=== PATIENT | female | born 1955 | race Caucasian/White ===

== ENCOUNTER 2017-12-17 01:55 | Inpatient (IN) ==
[2017-12-17] MEDS ORDERED: Morphine Sulfate Inj 8 MG/ML Vial IV.PUSH ONE (03:09)
--- NOTE | 2017-12-17 03:38 | ED ---
HPI General Chief complaint: Medical Clearance Stated complaint: Medical Transfer Time Seen by Provider: 12/17/17 02:15 Source: patient and old records reviewed Mode of arrival: EMS Limitations: no limitations History of Present Illness HPI narrative: 62-year-old female came to the emergency room brought by EMS as a transfer from [facility]. Patient went to the emergency room for some confusion. She has history of lung cancer with metastases. A head CT was done in the emergency room which showed a newly diagnosed hyperdense mass in the parietal region with vasogenic edema. They spoke with our neurosurgeon Dr. Scales who accepted the patient. Patient is awake and alert and answering questions. She says that she is in significant pain in her both lower and upper extremities. She understands the reason she is been transferred here. Vital signs are stable. Pain is worse upon movement. She received morphine prior to coming to this emergency room. Related Data Previous Rx's Medication Instructions Recorded dexamethasone 4 mg PO Q6H 7 Days #28 tab 12/18/17 Allergies Allergy/AdvReac Type Severity Reaction Status Date / Time latex Allergy Severe Anaphylaxis Verified 12/17/17 02:12 Review of Systems ROS: all other systems reviewed are negative [facility] Medical History Medical History Lung cancer (Acute) Social History Social History Substance History: No History of Abuse Second Hand Smoke Exposure: No Smoking Status: Former smoker Tobacco Type: Cigarettes How Often Do You Have a Drink Containing Alcohol: Never Immunization History Tetanus Immunization: Unsure Exam Narrative Exam Narrative: GENERAL: Awake, alert, moderate distress SKIN: Focused skin assessment warm/dry. HEAD: Atraumatic. Normocephalic. EYES: Pupils equal and round. No scleral icterus. No injection or drainage. ENT: No nasal bleeding or discharge. Mucous membranes pink and moist. NECK: Trachea midline. No JVD. CARDIOVASCULAR: Regular rate and rhythm. No murmur appreciated. RESPIRATORY: No accessory muscle use. Clear to auscultation. Breath sounds equal bilaterally. GASTROINTESTINAL: Abdomen soft, non-tender, nondistended. Hepatic and splenic margins not palpable. MUSCULOSKELETAL: No obvious deformities. No clubbing. No cyanosis. No edema. NEUROLOGICAL: Awake and alert. No obvious cranial nerve deficits. Motor grossly within normal limits. Normal speech. PSYCHIATRIC: Appropriate mood and affect; insight and judgment normal. Course Initial Documented Vital Signs Temperature 98.4 F 12/17/17 02:12 Pulse Rate 93 H 12/17/17 02:12 Respiratory Rate 19 12/17/17 02:12 Blood Pressure 158/70 H 12/17/17 02:12 Pulse Oximetry 94 L 12/17/17 02:12 Last Documented Vital Signs Temperature 97.6 F 12/18/17 12:00 Pulse Rate 72 12/18/17 16:00 Respiratory Rate 16 12/18/17 16:00 Blood Pressure 183/83 H 12/18/17 12:00 Pulse Oximetry 93 L 12/18/17 16:00 Medical Decision Making MDM Narrative Medical decision making narrative: 3:36 AM case was discussed with Dr. Scales after I spoke with the patient. Patient will be admitted to the MedSur floor under the hospitalist care. I have ordered morphine for her pain. She will get a dose of 4 mg of Decadron as per Dr. Scales. I discussed the case with Dr. Thomas from [facility] who has accepted the patient. Medical Screen Exam Complete: Yes Emergency Medical Condition: Yes Lab Data Result diagrams: 12/17/17 04:12 12/17/17 04:12 Lab Results 12/17/17 12/17/17 Range/Units 04:12 04:12 WBC 13.7 H (4.0-11.0) th/mm3 RBC 4.05 (4.00-5.30) mil/mm3 Hgb 11.8 (11.6-15.3) gm/dL Hct 34.7 L (35.0-46.0) % MCV 85.7 (80.0-100.0) fL MCH 29.2 (27.0-34.0) pg MCHC 34.0 (32.0-36.0) % RDW 16.1 (11.6-17.2) % Plt Count 528 H (150-450) th/mm3 MPV 6.9 L (7.0-11.0) fL Neut % (Auto) 80.1 H (16.0-70.0) % Lymph % (Auto) 9.7 (9.0-44.0) % [place] % (Auto) 8.7 H (0.0-8.0) % Eos % (Auto) 0.8 (0.0-4.0) % Baso % (Auto) 0.7 (0.0-2.0) % Neut # (Auto) 11.0 H (1.8-7.7) th/mm3 Lymph # (Auto) 1.3 (1.0-4.8) th/mm3 [place] # (Auto) 1.2 H (0.0-0.9) th/mm3 Eos # (Auto) 0.1 (0.0-0.4) th/mm3 Baso # (Auto) 0.1 (0.0-0.2) th/mm3 WBC Differential . Differential Comment Auto diff final Sodium 132 L (136-145) meq/L Potassium 4.2 (3.5-5.1) meq/L Chloride 95 L (98-107) meq/L Carbon Dioxide 25.0 (21.0-32.0) meq/L Anion Gap 12 (5-15) meq/L BUN 18 (7-18) mg/dL Creatinine 0.74 (0.50-1.00) mg/dL Estimated GFR 79 L (>89) mL/min Random Glucose 100 (74-106) mg/dL Calcium 9.3 (8.5-10.1) mg/dL Total Bilirubin 0.5 (0.2-1.0) mg/dL AST 13 L (15-37) U/L ALT 14 (10-53) U/L Alkaline Phosphatase 93 (45-117) U/L Total Protein 7.1 (6.4-8.2) g/dL Albumin 3.3 L (3.4-5.0) g/dL Imaging Data Radiologist's impression: Head MRI 12/17/17 00:00 CONCLUSION: 1. Rim-enhancing mass in the right frontal lobe with moderate surrounding vasogenic edema. 2. No definite additional lesions seen. Abdomen X-Ray 12/18/17 00:00 CONCLUSION: Mild constipation and diffuse ileus. Left lung mass measuring 6.[address] recommended if this has not been previously performed. Discharge Plan Discharge Disposition Patient Disposition: 30 Still Patient Discharge Condition Condition: Fair Discharge Order Discharge Orders: Discharge Order (Routine); Ordered 12/18/17 Ordered By: Tiffanie Stuart Discharge Details Anticipated Discharge Date: 12/18/17 Physicians Team ED Provider: Jonna Sumner Primary Care Provider: Primary Care Yadi Bernardo Attending Provider: Woody Ruiz Other Providers: Cameron Scales Status ED Status: Left Department Discharge Information Discharge Date/Time: 12/17/17 05:30
[2017-12-17 04:22] LABS: Baso # (Auto) 0.1 th/mm3 (0.0-0.2); Baso % (Auto) 0.7 % (0.0-2.0); Eos # (Auto) 0.1 th/mm3 (0.0-0.4); Eos % (Auto) 0.8 % (0.0-4.0); Hematocrit 34.7 % (35.0-46.0); Hemoglobin 11.8 gm/dL (11.6-15.3); Lymph # (Auto) 1.3 th/mm3 (1.0-4.8); Lymph % (Auto) 9.7 % (9.0-44.0); Mean Corpuscular Hemoglobin 29.2 pg (27.0-34.0); Mean Corpuscular Volume 85.7 fL (80.0-100.0); Mean Platelet Volume 6.9 fL (7.0-11.0); Mono # (Auto) 1.2 th/mm3 (0.0-0.9); Mono % (Auto) 8.7 % (0.0-8.0); Neut % (Auto) 80.1 % (16.0-70.0); Platelet Count 528 th/mm3 (150-450); Red Blood Count 4.05 mil/mm3 (4.00-5.30); Red Cell Distribution Width 16.1 % (11.6-17.2); White Blood Count 13.7 th/mm3 (4.0-11.0)
[2017-12-17 04:54] LABS: Albumin 3.3 g/dL (3.4-5.0); Anion Gap 12 meq/L (5-15); Aspartate Aminotransferase 13 U/L (15-37); Blood Urea Nitrogen 18 mg/dL (7-18); Calcium 9.3 mg/dL (8.5-10.1); Chloride 95 meq/L (98-107); Glomerular Filtration Rate 79 mL/min (>89); Glucose,Random 100 mg/dL (74-106); Potassium 4.2 meq/L (3.5-5.1); Sodium 132 meq/L (136-145)
[2017-12-17 04:55] LABS: Alanine Aminotransferase 14 U/L (10-53)
[2017-12-17 04:57] LABS: Alkaline Phosphatase 93 U/L (45-117); Total Protein 7.1 g/dL (6.4-8.2)
--- NOTE | 2017-12-17 09:12 | P.CONNS ---
History of Present Illness Primary Care Provider: No Primary Care Physician Chief Complaint: confusion, left facial droop History of Present Illness: 62yoF transferred from OSH >1 hr away with recently diagnosed lung masses and now brain mets (confusion and left sided weakness). Brain mass demonstrated on outside head CT with edema, no imaging loaded in our system. Patient is present with her son. She has had pain all over and been seeing interventional pain management (in [place]) where imaging revealed in bits and pieces masses. She saw an outside oncologist 2 weeks ago. Would like to consolidate her care here and demanded transfer here despite having a nearby hospital. [facility] - History History Provided By: Patient - Medical History Medical History: Medical History (Last Reviewed 12/17/17 @ 08:28 by Dyan Adams) COPD (chronic obstructive pulmonary disease) Lung cancer - Tobacco History Second Hand Smoke Exposure: No Tobacco Use In Past 30 Days: No Smoking Status: Former smoker Tobacco Type: Cigarettes - Alcohol History How Often Do You Have a Drink Containing Alcohol: Never - Substance Use History Substance History: No History of Abuse - Immunization History Tetanus Immunization: Unsure Hx Influenza Vaccine This Season: No Medications and Allergies Active Medications: Active Medications Dexamethasone Sodium Phosphate (Decadron Inj) 4 mg IV.PUSH Q6HR LOS Last Admin: 12/17/17 06:18 Dose: Not Given Hydromorphone HCl (Dilaudid) 4 mg PO Q4H PRN PRN Reason: PAIN SCALE 1 TO 10 Allergies Allergy/AdvReac Type Severity Reaction Status Date / Time latex Allergy Severe Anaphylaxis Verified 12/17/17 02:12 Home Medications Medication Instructions Recorded Confirmed Type hydromorphone [Dilaudid] 4 mg PO Q4-6H PRN 12/17/17 12/17/17 History Exam Vital signs: Vital Signs 12/17/17 02:12 12/17/17 05:34 12/17/17 05:46 Temperature 98.4 F 98.1 F Pulse Rate 93 H 91 H 86 Respiratory Rate 19 18 Blood Pressure 158/70 H 166/68 H Pulse Oximetry 94 L 92 L 12/17/17 07:00 12/17/17 07:59 Temperature 98.6 F Pulse Rate 82 106 H Respiratory Rate 18 Blood Pressure 133/54 L Pulse Oximetry 88 L Intake & Output 12/16/17 12/17/17 12/17/17 18:59 06:59 18:59 Weight 62.4 kg Other: Weight On Admission 62.4 kg Narrative: A&O x 3 CN II-XII intact - left upper facial droop Motor 5 RUE and RLE. Left upper and lower follows commands and tests to full strength, may have some neglect including visual lipscomb Results - Laboratory Findings CBC and BMP: 12/17/17 04:12 12/17/17 04:12 Abnormal lab findings: Abnormal Labs 12/17/17 12/17/17 04:12 04:12 WBC 13.7 H Hct 34.7 L Plt Count 528 H MPV 6.9 L Neut % (Auto) 80.1 H Hardy % (Auto) 8.7 H Neut # (Auto) 11.0 H Hardy # (Auto) 1.2 H Sodium 132 L Chloride 95 L Estimated GFR 79 L AST 13 L Albumin 3.3 L Assessment and Plan - Plan 62yoF with newly diagnosed brain masses and likely lung source (also history of basal cell left arm). Admit Decadron 4mg q6 po continue MRI Brain c/s contrast CT Chest/abd/pelvis with contrast Med Onc and Rad Onc consults for overall strategy If multiple or small lesions, may consider this for radiation Will follow
[2017-12-17] MEDS ORDERED: Gadobutrol PF 7.5 MMOL/7.5 ML Vial (for RAD) IV.SIG ONE (09:28)
--- NOTE | 2017-12-17 10:09 | MR ---
EXAM DATE: 12/17/2017 9:54 AM EST AGE/SEX: 62 years / Female INDICATIONS: Metastatic disease. CLINICAL DATA: This is the patient's initial encounter. Patient reports that signs and symptoms have been present for 1 day and indicates a pain score of 0/10. MEDICAL/SURGICAL HISTORY: Chronic obstructive pulmonary disease. Chronic obstructive pulmonary disease. section. COMPARISON: No prior exams available for comparison. TECHNIQUE: Multiplanar, multisequence examination of the brain was performed without and with 6 ml Ga davist (gadobutrol) contrast as a single exam dose. FINDINGS: Diffusion weighted images demonstrate no evidence for acute infarction. The bone marrow signal intens ity is normal. In the right frontal subcortical region, a mass is seen with blooming artifact on susc eptibility weighted images, and avid rim enhancement following contrast administration. The mass savanna ures approximately 6.8 mm and there is a moderate amount of surrounding vasogenic edema with slight m ass effect on the adjacent postcentral gyrus and central sulcus. There is no midline shift identified . No additional lesions are seen in the brain. CONCLUSION: 1. Rim-enhancing mass in the right frontal lobe with moderate surrounding vasogenic edema. 2. No definite additional lesions seen. Electronically signed by: Barrington Vang MD 12/17/2017 10:08 AM EST
--- NOTE | 2017-12-17 17:37 | P.HPIM ---
History of Present Illness Primary Care Physician: No Primary Care Physician Patient is a pleasant 62-year-old female with PMH of HTN, alcoholism, and tobaccoism who lives in the [place] area. Patient was transferred from outside hospital in [place] to [facility] [place] for neurosurgical evaluation. Unfortunately, there are no records available to me from her recent workup for metastatic lung cancer. Patient reports that she recently established with an oncologist, Dr. Sahni of [place], [place]. Patient reports that she had biopsy of metastatic hip lesion this past Tuesday in [place]. Patient reports that she has lost approximately 20 pounds in the last 4 months. Patient complains of generalized pain. Case discussed at length with patient and her sister Yaquelin Garcia. Patient reports that she is not interested in further workup or treatment here at [facility]. I offered to have the patient see medical oncology and radiation oncology here at [facility]. Patient adamantly declines. Patient states that she is most interested in pain control, and would like to be transferred to assisted facility in [place] as soon as possible. Patient says that she will follow-up with her new oncologist Dr. Sahni for results of her biopsy. Patient's recently after a prolonged illness with colon cancer and Ms. Lugo was the primary transportation services representative. Case discussed at length with consulting neurosurgeon, Dr. Scales. Dr. Scales had appropriately ordered CT of chest, abdomen, and pelvis. I have canceled these imaging studies at the patient's request. Dr. Scales feels that the patient is not a surgical candidate at this time, but does recommend evaluation by radiation oncology for possible brain radiation. As mentioned above, patient is not interested in consultation with radiation oncology. Continue IV Decadron at this time. PMH: - HTN - alcoholism, recovering - tobaccoism - Lung Cancer, Stage IV - metastatis to bone & brain - imaging studies from outside hospitals/medical centers are NOT available to me for review PSH: - Hip biopsy, bone marrow biopsy? - breast biopsy x 2, benign per pt - Cecaran section x 1 - excision of BCC FHX: Noncontributory SHX: - - retired Relator/securities broker - sister lives nearby to pt - son lives in [place], [place] - former alcoholic - long smoking history - Pt denies illicit street drugs All: NKDA Inpatient Certification Inpatient Certification: I certify that the inpatient services were ordered in accordance with Medicare regulations governing the order. This includes certification that hospital inpatient services are reasonable and necessary and in the case of services not specified as inpatient-only under 42 CFR 419.22(n), that they are appropriately provided as inpatient services in accordance to with the 2-midnight benchmark under 43 CFR 412.3(e) Medications and Allergies Allergies Allergy/AdvReac Type Severity Reaction Status Date / Time latex Allergy Severe Anaphylaxis Verified 12/17/17 02:12 Home Medications Medication Instructions Recorded Confirmed Type hydromorphone [Dilaudid] 4 mg PO Q4-6H PRN 12/17/17 12/17/17 History Active Medications: Active Medications Dexamethasone Sodium Phosphate (Decadron Inj) 4 mg IV.PUSH Q6HR LOS Last Admin: 12/17/17 06:18 Dose: Not Given Hydromorphone HCl (Dilaudid) 4 mg PO Q4H PRN PRN Reason: PAIN SCALE 1 TO 10 Physical Exam Vital signs: Last Vital Signs Temp 97.9 F 12/17/17 11:59 Pulse 90 12/17/17 12:00 Resp 16 12/17/17 11:59 BP 159/79 H 12/17/17 11:59 Pulse Ox 91 L 12/17/17 11:59 Results Labs CBC & Chem 7: 12/17/17 04:12 12/17/17 04:12 Caprini VTE Risk Assessment Caprini Risk Assessment Model: Point Value = 1 Point Value = 2 Point Value = 3 Point Value = 5 Age 41-60 Minor surgery BMI > 25 kg/m2 Swollen legs Varicose veins or History of unexplained or recurrent spontaneous Oral contraceptives or hormone replacement Sepsis (< 1 month) Serious lung disease, including pneumonia (< 1 month) Abnormal pulmonary function Acute myocardial infarction Congestive heart failure (< 1 month) History of inflammatory bowel disease Medical patient at bed rest Age 61-74 Arthroscopic surgery Major open surgery (> 45 min) Laparoscopic surgery (> 45 min) Malignancy Confined to bed (> 72 hours) Immobilizing plaster cast Central venous access Age >= 75 History of VTE Family history of VTE Factor V Leiden Prothrombin [id number] Lupus anticoagulant Anticardiolipin antibodies Elevated serum homocysteine Heparin-induced thrombocytopenia Other congenital or acquired thrombophilia Stroke (< 1 month) Elective arthroplasty Hip, pelvis, or leg fracture Acute spinal cord injury (< 1 month) Prophylaxis Regimen: Total Risk Factor Score Risk Level Prophylaxis Regimen 0-1 Low Early ambulation 2 Moderate Order ONE of the following: *Sequential Compression Device (SCD) *Heparin 5000 units SQ BID 3-4 Higher Order ONE of the following medications: *Heparin 5000 units SQ TID *Enoxaparin/Lovenox 40 mg SQ daily (WT < 150 kg, CrCl > 30 mL/min) *Enoxaparin/Lovenox 30 mg SQ daily (WT < 150 kg, CrCl > 10-29 mL/min) *Enoxaparin/Lovenox 30 mg SQ BID (WT < 150 kg, CrCl > 30 mL/min) AND/OR *Sequential Compression Device (SCD) 5 or more Highest Order ONE of the following medications: *Heparin 5000 units SQ TID (Preferred with Epidurals) *Enoxaparin/Lovenox 40 mg SQ daily (WT < 150 kg, CrCl > 30 mL/min) *Enoxaparin/Lovenox 30 mg SQ daily (WT < 150 kg, CrCl > 10-29 mL/min) *Enoxaparin/Lovenox 30 mg SQ BID (WT < 150 kg, CrCl > 30 mL/min) AND *Sequential Compression Device (SCD) Assessment and Plan Plan Patient is a pleasant 62-year-old female with PMH of HTN, alcoholism, and tobaccoism who lives in the [place] area. Patient was transferred from outside hospital in [place] to [facility] for neurosurgical evaluation. Unfortunately, there are no records available to me from her recent workup for metastatic lung cancer. Patient reports that she recently established with an oncologist, Dr. Sahni of [place], [place]. Patient reports that she had biopsy of metastatic hip lesion this past Tuesday in [place]. Patient reports that she has lost approximately 20 pounds in the last 4 months. Patient complains of generalized pain. Case discussed at length with patient and her sister Yaquelin Garcia. Patient reports that she is not interested in further workup or treatment here at [facility]. I offered to have the patient see medical oncology and radiation oncology here at [facility]. Patient adamantly declines. Patient states that she is most interested in pain control, and would like to be transferred to assisted facility in [place] as soon as possible. Patient says that she will follow-up with her new oncologist Dr. Sahni for results of her biopsy. Patient's recently after a prolonged illness with colon cancer and Ms. Lugo was the primary transportation services representative. Case discussed at length with consulting neurosurgeon, Dr. Scales. Dr. Scales had appropriately ordered CT of chest, abdomen, and pelvis. I have canceled these imaging studies at the patient's request. Dr. Scales feels that the patient is not a surgical candidate at this time, but does recommend evaluation by radiation oncology for possible brain radiation. As mentioned above, patient is not interested in consultation with radiation oncology. Continue IV Decadron at this time. - Per pt request CT C/A/P cancelled - Per pt request consultation to Medical Oncology cancelled - Per pt request consultation to Radiation Oncology cancelled - continue IV decadrom - IVFs overnight - continue prn PO dilaudid. - start Duragesic 25mcg daily. - Colace - MOM prn - DVT prophylaxis - supportive care - Case d/w Neurosurgery, Dr. Scales (12/17/17). - Will try to arrange transfer to [facility] per pt request H&P: Quality VTE Deep Vein Thrombosis/Pulmonary Embolism Present on Admission: No
[2017-12-17] MEDS ORDERED: Sodium Chloride 0.9% 2 ML Flush PRN IV.FLUSH (18:26)
[2017-12-17] MEDS: Docusate Sodium 100 MG Capsule PO SCH (20:03)
[2017-12-17] MEDS: Sodium Chloride 0.9% 2 ML Flush BID IV.FLUSH SCH (20:03)
[2017-12-17] MEDS: KCL 20 mEq/NACL 0.45% Inj 1,000 ML IV.CONT SCH (20:03)
[2017-12-18] MEDS: Docusate Sodium 100 MG Capsule PO SCH (09:16)
[2017-12-18] MEDS: KCL 20 mEq/NACL 0.45% Inj 1,000 ML IV.CONT SCH (09:17)
--- NOTE | 2017-12-18 10:43 | P.PNIM ---
Subjective Interval history: DRAFT NOTE Pt is anxious. Pt states that her pain is NOT controlled & requests increase frequency of PO dilaudid. Pt c/o constipation. Physical Exam Vital signs: Last Vital Signs Temp 97.8 F 12/18/17 08:00 Pulse 75 12/18/17 08:00 Resp 18 12/18/17 08:00 BP 166/74 H 12/18/17 08:00 Pulse Ox 91 L 12/18/17 08:00 Results Labs CBC & Chem 7: 12/17/17 04:12 12/17/17 04:12 Assessment and Plan Plan Patient is a pleasant 62-year-old female with PMH of HTN, alcoholism, and tobaccoism who lives in the [place] area. Patient was transferred from outside hospital in [place] to [facility] for neurosurgical evaluation. Unfortunately, there are no records available to me from her recent workup for metastatic lung cancer. Patient reports that she recently established with an oncologist, Dr. Sahni of [place], [place]. Patient reports that she had biopsy of metastatic hip lesion this past Tuesday in [place]. Patient reports that she has lost approximately 20 pounds in the last 4 months. Patient complains of generalized pain. Case discussed at length with patient and her sister Yaquelin Garcia. Patient reports that she is not interested in further workup or treatment here at [facility]. I offered to have the patient see medical oncology and radiation oncology here at [facility]. Patient adamantly declines. Patient states that she is most interested in pain control, and would like to be transferred to nursing home facility in [place] as soon as possible. Patient says that she will follow-up with her new oncologist Dr. Sahni for results of her biopsy. Patient's recently after a prolonged illness with colon cancer and Ms. Lugo was the primary yard motor operator. Case discussed at length with consulting neurosurgeon, Dr. Scales. Dr. Scales had appropriately ordered CT of chest, abdomen, and pelvis. I have canceled these imaging studies at the patient's request. Dr. Scales feels that the patient is not a surgical candidate at this time, but does recommend evaluation by radiation oncology for possible brain radiation. As mentioned above, patient is not interested in consultation with radiation oncology. Continue IV Decadron at this time. - Per pt request CT C/A/P cancelled - Per pt request consultation to Medical Oncology cancelled - Per pt request consultation to Radiation Oncology cancelled - continue IV decadrom - IVFs. STOP at 8AM 12/19 - schedule PO dilaudid q6h (hold for sedation) - prn dilaudid q2h - schedule ativan q8h (hold for sedation) - prn ativan - Duragesic 25mcg daily (started 12/17) - Colace - MOM prn - DVT prophylaxis - supportive care - Case d/w Neurosurgery, Dr. Scales (12/17/17). - anticipate d/c to [facility] per pt request vs other SNF - Pt did NOT want referal to local hospice. Pt would prefer transfer to [facility] and then to become established with Hospice in [place], [place]. Progress Note: Quality VTE Deep Vein Thrombosis/Pulmonary Embolism Present on Admission: No
[2017-12-18] MEDS ORDERED: Sod Phosphate/Sod Biphosphate (Adult) Enema 133 ML Bottle RECTAL PRN (11:29)
[2017-12-18] MEDS ORDERED: Naloxone Inj 0.4 MG/ML Vial IV.PUSH PRN (11:33)
[2017-12-18] MEDS: Sodium Chloride 0.9% 2 ML Flush BID IV.FLUSH SCH (12:12)
[2017-12-18 12:53] VITALS: BP 183/83; RESP 16; TEMP 97.6
--- NOTE | 2017-12-18 15:44 | XR ---
EXAM DATE: 12/18/2017 3:24 PM EST AGE/SEX: 62 years / Female INDICATIONS: Constipation. CLINICAL DATA: This is the patient's initial encounter. Patient reports that signs and symptoms have been present for 3 days and indicates a pain score of 3/10. MEDICAL/SURGICAL HISTORY: . Chronic obstructive pulmonary disease. section. . COMPARISON: No prior exams available for comparison. FINDINGS: There is a 6.7 cm mass in the left lung. There is a reported history of metastatic disease. Abdomen reveals mild constipation and ileus. No free air identified. Mild rotatory scoliosis. CONCLUSION: Mild constipation and diffuse ileus. Left lung mass measuring 6.[address] recommended if this perez s not been previously performed. Electronically signed by: David Mcqueen MD 12/18/2017 3:42 PM EST
--- NOTE | 2017-12-18 16:33 | P.DS ---
DS: Providers Date of admission: 12/17/17 03:35 Primary care physician: No Primary Care Physician Consults: 12/17/17 03:53 Consult to Neurosurgery Routine Consulting Provider: Cameron Guevara Preferred Braid Maker:: Cameron Guevara Reason for Consultation: Brain metastasis Notified:: Service Spoke with:: adding to dr guevara's list with courtesy call in AM Date Notified:: 12/17/17 Time Notified:: 05:32 Ordering Provider: SAL 12/18/17 13:47 Consult to Hospice Routine Consulting Provider: Call Back Comment: patient and family request [facility] interested in [facility] DS: Diagnosis Discharge Diagnosis (1) Cancer, metastatic: Status: Acute DS: Summary Patient is a pleasant 62-year-old female with PMH of HTN, alcoholism, and tobaccoism who lives in the [place] area. Patient was transferred from outside hospital in [place] to [facility] for neurosurgical evaluation. Unfortunately, there are no records available to me from her recent workup for metastatic lung cancer. Patient reports that she recently established with an oncologist, Dr. Sahni of [place], [place]. Patient reports that she had biopsy of metastatic hip lesion this past Tuesday in [place]. Patient reports that she has lost approximately 20 pounds in the last 4 months. Patient complains of generalized pain. Case discussed at length with patient and her sister Yaquelin Garcia. Patient reports that she is not interested in further workup or treatment here at [facility]. I offered to have the patient see medical oncology and radiation oncology here at [facility]. Patient adamantly declines. Patient states that she is most interested in pain control, and would like to be transferred to long term facility in [place] as soon as possible. Patient says that she will follow-up with her new oncologist Dr. Sahni for results of her biopsy. Patient's recently after a prolonged illness with colon cancer and Ms. Lugo was the primary drapery operator. Case discussed at length with consulting neurosurgeon, Dr. Guevara. Dr. Guevara had appropriately ordered CT of chest, abdomen, and pelvis. I have canceled these imaging studies at the patient's request. Dr. Guevara feels that the patient is not a surgical candidate at this time, but does recommend evaluation by radiation oncology for possible brain radiation. As mentioned above, patient is not interested in consultation with radiation oncology. Continue IV Decadron at this time. - Per pt request CT C/A/P cancelled - Per pt request consultation to Medical Oncology cancelled - Per pt request consultation to Radiation Oncology cancelled - continue IV decadrom - IVFs. STOP at 8AM 12/19 - schedule PO dilaudid q6h (hold for sedation) - prn dilaudid q2h - schedule ativan q8h (hold for sedation) - prn ativan - Duragesic 25mcg daily (started 12/17) - Colace - MOM prn - DVT prophylaxis - supportive care - Case d/w Neurosurgery, Dr. Guevara (12/17/17). - received call from patient's son that the family and patient have talked and have decided that they would like to meet with hospice. Patient and family met with Hospice and would like to be DC 'd to Hospice care center. Time Spent with Patient Total time spent providing and/or coordinating discharge services: Quality: VTE Deep Vein Thrombosis/Pulmonary Embolism Present on Admission: No Exam Narrative Exam Narrative: GENERAL: This is a 62 year old female patient A&O CARDIOVASCULAR: Regular rate and rhythm RESPIRATORY: Clear to auscultation. Breath sounds equal bilaterally. GASTROINTESTINAL: Abdomen soft, non-tender, nondistended. Normal active bowel sounds MUSCULOSKELETAL: Extremities without clubbing, cyanosis, or edema. NEURO: Alert & Oriented. DS: Data Impressions Head MRI 12/17/17 00:00 CONCLUSION: 1. Rim-enhancing mass in the right frontal lobe with moderate surrounding vasogenic edema. 2. No definite additional lesions seen. Abdomen X-Ray 12/18/17 00:00 CONCLUSION: Mild constipation and diffuse ileus. Left lung mass measuring 6.[address] recommended if this has not been previously performed. Discharge Plan Discharge Disposition Patient Disposition: [facility] Hospice[facility]Med Facility Discharge Condition Condition: Fair Discharge Order Discharge Orders: Discharge Order (Routine); Ordered 12/18/17 Ordered By: Tiffanie Stuart Discharge Details Anticipated Discharge Date: 12/18/17 Physicians Team ED Provider: Jonna Sumner Primary Care Provider: Primary Care Tova,Yadi Attending Provider: Woody Ruiz Other Providers: Cameron Guevara Rxs /Orders / Referrals /Forms Prescriptions: New dexamethasone 4 mg tablet 4 mg PO Q6H 7 Days Qty: 28 RF: 0 Discontinued hydromorphone [Dilaudid] 4 mg Tablet 4 mg PO Q4-6H PRN (Reason: Acute Pain) RF: 0 Referrals: Primary Care Yadi Bernardo [Primary Care Provider] - See Instructions Discharge Instructions Additional Instructions: medications and follow up appointments per Hospice Status ED Status: Left Department
[2017-12-18 19:03] VITALS: PULSE 72; O2SAT 93
== END 2017-12-18 19:15 | disposition hospice, inpatient (51) ==
LOC: NEPC 01:55 → NEDA 03:35 → HCIN 05:11
PROVIDERS: ADMIT Hospitalist; ATTEND Hospitalist